=== PATIENT | female | born 1980 | race Caucasian/White ===

== ENCOUNTER 2023-06-14 09:15 | Day surgery (SDC) | payer BC ==
[2023-06-06 14:02] VITALS: BMI 28.2
[2023-06-14] MEDS ORDERED: MIDAZOLAM HCL 2 MG/2 ML SINGLE DOSE VIAL ONE (09:49)
[2023-06-14] MEDS ORDERED: PROPOFOL 40 ML ONE ×2 (09:49→12:44)
[2023-06-14] MEDS ORDERED: VANCOMYCIN 1,000 MG VIAL (RESTRICTED TO ID ONLY) ONE (09:59)
[2023-06-14] MEDS ORDERED: ceFAZolin SODIUM 1 GM VIAL ONE (09:59)
[2023-06-14] MEDS ORDERED: EPINEPHrine/PF 1 MG/1 ML (1:1,000) AMPULE ONE (10:00)
[2023-06-14] MEDS ORDERED: BUPIVACAINE HCL/PF 2.5 MG/ML - 30 ML VIAL IJ ONE (10:00)
[2023-06-14] MEDS ORDERED: GENTAMICIN SO4 80 MG/2 ML VIAL ONE (10:00)
[2023-06-14] MEDS ORDERED: FAMOTIDINE 20 MG/50 ML IVPB 20 MG/50 ML MG IVPB ONE (11:15)
[2023-06-14] MEDS ORDERED: ACETAMINOPHEN INJECTION 100 ML IVPB ONE (11:15)
[2023-06-14] MEDS ORDERED: ONDANSETRON 4 MG/2 ML VIAL IVPUSH PRN (14:04)
[2023-06-14] MEDS ORDERED: oxyCODONE HCL 5 MG TABLET PO PRN (14:04)
[2023-06-14] MEDS ORDERED: LACTATED RINGERS SOLUTION 1,000 ML IV SCH (14:15)
[2023-06-14 15:17] VITALS: RESP 18; TEMP 97.2
[2023-06-14 15:33] VITALS: BP 120/64; PULSE 61
== END 2023-06-14 15:42 | disposition home or self-care (01) ==
LOC: FASU 09:15
PROVIDERS: ATTEND Plastic Surgery
PROC: 0HNV0ZZ Release Bilateral Breast, Open Approach (ICD-10-PCS; principal; 2023-06-14 11:47)
PROC: 0HX5XZZ Transfer Chest Skin, External Approach (ICD-10-PCS; 2023-06-14 11:47)
DX: T85.44XA Capsular contracture of breast implant, initial encounter (principal); Y82.8 Other medical devices associated with adverse incidents; Y92.9 Unspecified place or not applicable
CPT/HCPCS: 14000; 19342; 19371; L8600; 81025; 88300-TC; 88305-TC; 94760